=== PATIENT | male | born 1970 | race Caucasian/White ===

== ENCOUNTER 2024-09-26 08:42 | Emergency (ER) | payer MEDICAID ==
[~2024-09-26] VITALS: Ht 172.7 cm; Wt 104.3 kg
[2024-09-26 08:53] VITALS: BP 138/88; PULSE 86; TEMP 97.8; O2SAT 97
[2024-09-26] MEDS: ondansetron 4mg rapidly disintigrating tab PO ONE (10:45)
[2024-09-26] MEDS: HYDROcodone/acetaminophen 5mg/325mg tablet PO ONE (10:46)
[2024-09-26 10:47] VITALS: RESP 16
[2024-09-26] MEDS: dexamethasone sod phosphate 10mg/ml inj IM STA (10:47)
[2024-09-26] MEDS: ketorolac trometh 30MG/ML vial 30 MG/ML VIAL IM ONE (10:47)
[2024-09-26] MEDS ORDERED: CYCL-1 PO (11:47)
[2024-09-26] MEDS ORDERED: HYDR-3965 PO (11:47)
== END 2024-09-26 12:02 | disposition home or self-care (01) ==
LOC: ER 08:42
DX: S83.91XA Sprain of unspecified site of right knee, initial encounter (principal); M25.661 Stiffness of right knee, not elsewhere classified; M54.6 Pain in thoracic spine; X58.XXXA Exposure to other specified factors, initial encounter; Y93.89 Activity, other specified; Y92.89 Other specified places as the place of occurrence of the external cause; Y99.8 Other external cause status
CPT/HCPCS: 72131; 73564; 96372; 99285; J1100; J1885

== ENCOUNTER 2024-10-23 18:11 | Emergency (ER) | payer MEDICAID ==
[~2024-10-23] VITALS: Ht 172.7 cm; Wt 104.1 kg
[~2024-10-23 18:11] MED LIST: CYCL-1 PO
[2024-10-23] MEDS ORDERED: TRIA15CR61 TOP (19:15)
--- NOTE | 2024-10-23 19:16 | Physician Documentation ---
History of Present Illness ~ Chief Complaint: Bite-insect Stated Complaint: NEEDS VERIFICATION ON BED BUG BITES Time Seen by MD: 18:47 HPI Patient is seen today with complaints of skin lesions that he feels are bug bites that he got from a motel. Patient brought in a picture on his phone of a bug bite. Is impossible to confirm way this picture was taken. The patient does complain of bites on his wrists and denies any involvement of his shoulders or trunk or neck or face or lower extremities. Patient states this has occurred recently within the last week. Patient has no other complaints at this time he denies any fevers or chills or chest pain or shortness of breath or abdominal pain or nausea, vomiting, diarrhea. Medication Reconciliation Allergies: Coded Allergies: No Known Allergies (Unverified , 09/26/24) Scheduled Cyclobenzaprine* (Cyclobenzaprine*), 1 TAB PO HS Review of Systems Constitutional: Denies: chills, fever, weakness Eyes: Denies: pain, blurred vision ENT: Denies: ear pain, nose pain, throat pain, mouth pain Respiratory: Denies: cough, shortness of breath Cardiovascular: Denies: chest pain, palpitations Gastrointestinal: Denies: abdominal pain, nausea, vomiting Genitourinary: Denies: burning, dysuria Male Genitalia: Denies: penile discharge, testicular pain Neurological: Denies: headache, dizziness Musculoskeletal: Denies: pain, swelling Integumentary: Denies: rash, lesions Allergic/Immunologic: Reports: itching; Denies: hives Hematologic/Lymphatic: Denies: no symptoms reported Psychiatric: Denies: depression, anxiety Physical Exam Vital Signs: Temperature: 98.0, Heart Rate: 88, Respiratory Rate: 16, BP: 149/102, Pulse Oximetry: 97, Weight: 104.090 Oxygen Flow Rate: 0 Physical Exam General: Awake and Alert, no acute distress. HEENT: Conjunctiva pink, Sclera clear, Mucus Membranes moist. Neck: Supple without masses and tenderness. Resp: Unlabored. Lungs clear to auscultation bilaterally. Heart: Regular Rate and rhythm, normal S1 and S2 without murmur, rub or gallop. Extremities: No cyanosis,clubbing or edema. Skin: On exam the patient does have some excoriations with recent scab formation on his wrists bilaterally. I do not appreciate any skin lesions of his upper arms or trunk, or legs or lower extremities.. Progress Results/Orders Results/Orders Vital Signs 10/23/24 18:51 Temp 98.0 Pulse 88 Resp 16 B/P (MAP) 149/102 Pulse Ox 97 O2 Flow Rate 0 Medical Decision Making Findings Patient is seen today with complaints of skin lesions that he feels are bug bites that he got from a motel. Patient brought in a picture on his phone of a bug bite. Is impossible to confirm way this picture was taken. The patient does complain of bites on his wrists and denies any involvement of his shoulders or trunk or neck or face or lower extremities. Patient states this has occurred recently within the last week. Patient has no other complaints at this time he denies any fevers or chills or chest pain or shortness of breath or abdominal pain or nausea, vomiting, diarrhea. Prescription of triamcinolone topical cream sent to patient pharmacy. I advised patient no longer sleep on the mattress in question. I recommended patient take samples from this mattress to local pes control for confirmation of bedbugs. As I do not have any specimen brought into the ED today I can either confirm nor deny the absolute cause of the skin lesions. Patient will return to ED with any worsening, concerning or changing symptoms. Departure Disposition: 01 HOME / SELF CARE / HOMELESS Impression: Primary Impression: Skin lesion Additional Impression: Excoriation Condition: Stable Discharge Instructions: Insect Bite, Adult, [id number] Additional Instructions: Prescription of triamcinolone topical cream sent to patient pharmacy. I advised patient no longer sleep on the mattress in question. I recommended patient take samples from this mattress to local pes control for confirmation of bedbugs. As I do not have any specimen brought into the ED today I can either confirm nor deny the absolute cause of the skin lesions. Patient will return to ED with any worsening, concerning or changing symptoms. Referrals: NO PRIMARY CARE PROVIDER (PCP) Prescriptions Triamcinolone Acetonide 0.5% Crm* (Kenalog 0.5% Crm*) 15 Gm Tube 1 APPLIC TOP Q12H for 30 Days, #15 GM apply to affected area(s) Prov: SUNSHINE PATTERSON 10/23/24 Signature Scribe Signature: No scribe Attestation: No scribe SUNSHINE PATTERSON October 23, 2024 19:15
[2024-10-23 19:37] VITALS: BP 149/102; PULSE 88; RESP 16; TEMP 98; O2SAT 97
== END 2024-10-23 19:42 | disposition home or self-care (01) ==
LOC: ER 18:13
DX: S60.811A Abrasion of right wrist, initial encounter (principal); S60.812A Abrasion of left wrist, initial encounter; L98.9 Disorder of the skin and subcutaneous tissue, unspecified; W57.XXXA Bitten or stung by nonvenomous insect and other nonvenomous arthropods, initial encounter; Y93.89 Activity, other specified; Y92.89 Other specified places as the place of occurrence of the external cause; Y99.8 Other external cause status
CPT/HCPCS: 99283